=== PATIENT | male | born 1995 | race Hispanic/Latino ===

== ENCOUNTER 2018-05-25 23:43 | Emergency (ER) | payer SELFPAY ==
[~2018-05-25] VITALS: Ht 165.1 cm; Wt 86.2 kg
[2018-05-26] MEDS ORDERED: VISINE-A EYE AL15 ML OP (00:09)
[2018-05-26 00:13] VITALS: BP 128/70
[2018-05-26] MEDS ORDERED: XYZAL5 MG PO (00:16)
[2018-05-26] MEDS ORDERED: IBUPROFEN400 MG PO (00:16)
== END 2018-05-26 00:48 | disposition home or self-care (01) ==
LOC: FSED 23:43
DX: H10.233 Serous conjunctivitis, except viral, bilateral (principal)
CPT/HCPCS: 99282